=== PATIENT | female | born 1980 | race Caucasian/White ===

== ENCOUNTER → 2016-07-12 | Outpatient (CLI) | payer OTHER ==
[2015-10-18 06:19] VITALS: BP 126/81
[~2016-07-12] MED LIST: CYCL10TA2 PO; OMEP40CA5 PO; OXYC1TAB7 PO; SERT100T PO; TRAM50TA PO; WARF7.5T PO; birth control pill PO
--- NOTE | 2016-07-12 17:26 | RAD ---
Left lower extremity venous ultrasound, 07/12/2016 : History: Left leg swelling Duplex evaluation including grayscale, color flow and spectral Doppler analysis was performed. The femoral and popliteal veins show no filling defects to suggest DVT. The visualized calf veins are unremarkable. IMPRESSION: There is no sonographic evidence of deep vein thrombosis in the left lower extremity
== END | disposition home or self-care (01) ==
LOC: US 16:03
PROVIDERS: ATTEND Internal Medicine Hematology & Oncology
DX: I82.412 Acute embolism and thrombosis of left femoral vein (principal)
CPT/HCPCS: 93971